=== PATIENT | male | born 1950 | race Two or more races ===

== ENCOUNTER 2019-04-21 12:45 | Inpatient (IN) | payer MEDICARE, OTHER ==
[2019-04-21] VITALS (25 sets, daily range): BP systolic 86–184; BP diastolic 48–157
[~2019-04-21] VITALS: Ht 165.1 cm; Wt 88.0 kg
[2019-04-21] MEDS ORDERED: ALBUTEROL FS 2.5 MG/3 ML VIAL.NEB ONE (12:52)
[2019-04-21] MEDS ORDERED: IPRATROPIUM NEB FS 0.5 MG/2.5 ML AMPUL.NEB ONE (12:52)
--- NOTE | 2019-04-21 12:55 | NUR ---
MARCK RA IN RESPIRATORY DISTRESS, ON CPAP FROM HOME. PATIENT ALERT AND ORIENTED, VERBALLY RESPONSIVE, ATTACHED TO THE RELIEF MAN, CHANGED INTO GOWN, RT AT BEDSIDE, KEPT PATIENT COMFORTABLE. PATIENT TACHYCARDIC. DR. ETIENNE AT BEDSIDE.
[2019-04-21] MEDS ORDERED: IV NS 0.9% 500 ML IV ONE (13:00)
[2019-04-21] MEDS ORDERED: methylPREDNISolone SOD SUCC 125 MG/2ML VIAL IV ONE (13:00)
[2019-04-21] MEDS ORDERED: ALBUTEROL FS 2.5 MG/0.5 ML VIAL.NEB NEB ONE (13:00)
[2019-04-21] MEDS ORDERED: IPRATROPIUM NEB FS 0.5 MG/2.5 ML AMPUL.NEB NEB ONE (13:00)
--- NOTE | 2019-04-21 13:00 | NUR ---
IV LINE ESTABLISHED, LABS DRAWN AND SENT TO LAB.
[2019-04-21] MEDS ORDERED: methylPREDNISolone SOD SUCC 125 MG/2ML VIAL ONE (13:08)
[2019-04-21 13:12] LABS: ABG BASE EXCESS -2.3 mmol/L; ABG OXYGEN SATURATION 98.2 % (92.0-98.5); ABG PH 7.322 (7.350-7.450); ABG PO2 146.1 mmHg (75.0-100.0); AaDO2 518.9 mmHg; MetHb 0.6 % (0.0-1.5); O2Hb 96.6 % (94.0-97.0); SITE, ABG Right Radial; VENT MODE, BG ST 15/5 R 14
[2019-04-21 13:12] LABS: BASOPHILS # (AUTO) 0.1 /CMM (0.0-0.2); BASOPHILS % (AUTO) 0.4 % (0.0-2.0); HEMATOCRIT 50 % (39-51); HEMOGLOBIN 16.5 g/dL (13.5-17.5); LYMPHOCYTES # (AUTO) 0.7 /CMM (0.8-4.8); LYMPHOCYTES % (AUTO) 5.1 % (20.0-44.0); MEAN CORPUSCULAR HGB CONC 33 g/dl (31.0-36.0); MEAN CORPUSCULAR VOLUME 91 fL (80-96); MONOCYTES # (AUTO) 1.1 /CMM (0.1-1.30); MONOCYTES % (AUTO) 7.6 % (2.0-12.0); NEUTROPHILS # (AUTO) 12.3 /CMM (1.8-8.9); NEUTROPHILS % (AUTO) 86.9 % (43.0-81.0); PLATELET COUNT (AUTO) 229 /CMM (150-450); RED BLOOD CELL COUNT(AUTO) 5.47 MIL/uL (4.5-6.0); WHITE BLOOD COUNT (AUTO) 14.2 K/uL (4.3-11.0)
[2019-04-21 13:20] LABS: CALCIUM, SERUM 8.2 mg/dL (8.5-10.1); CARBON DIOXIDE 32 mmol/L (21-32); CHLORIDE 101 mmol/L (98-107); CREATININE 1.8 mg/dL (0.6-1.3); GLUCOSE 195 mg/dL (74-106); POTASSIUM 4.8 mmol/L (3.5-5.1); SODIUM SERUM 139 mmol/L (136-145); UREA NITROGEN, BLOOD 28 mg/dL (7-18)
--- NOTE | 2019-04-21 13:27 | NUR ---
[facility] PAGED
[2019-04-21] MEDS ORDERED: CEFEPIME 1 GM in IV D5W 50 ML IV ONE (13:30)
[2019-04-21] MEDS ORDERED: VANCOMYCIN 1 GM in IV D5W 250 ML IV ONE (13:30)
[2019-04-21] MEDS ORDERED: AMLO5TAB4 PO (13:32)
[2019-04-21] MEDS ORDERED: LOSA100T31 PO (13:32)
[2019-04-21 13:33] LABS: ALANINE AMINOTRANSFERASE 80 U/L (12-78); ALKALINE PHOSPHATASE 137 U/L (46-116); ASPARTATE AMINOTRANSFERASE 72 U/L (15-37); B-TYPE NATRIURETIC PEPTIDE 3351 PG/ML (0-125); BILIRUBIN,DIRECT 0.1 mg/dL (0.0-0.2); BILIRUBIN,TOTAL 0.4 mg/dL (0.2-1.0); TOTAL PROTEIN, SERUM 7.2 g/dL (6.4-8.2)
[2019-04-21] MEDS ORDERED: IV NS 0.9% 1,000 ML BAG IV ONE (14:00)
[2019-04-21] MEDS ORDERED: CEFEPIME 1 GM in IV NS 0.9% 50 ML IV SCH (14:30)
[2019-04-21] MEDS ORDERED: ACETAMINOPHEN 325 MG TABLET PO PRN (14:30)
[2019-04-21] MEDS ORDERED: ONDANSETRON HCL/PF 4 MG/2 ML VIAL IVP PRN (14:30)
[2019-04-21] MEDS ORDERED: MAGNESIUM HYDROXIDE 30 ML UDC PO PRN (14:30)
[2019-04-21] MEDS ORDERED: Z GUARD REMEDY 2 OZ OINT TP PRN (14:30)
[2019-04-21] MEDS ORDERED: MAG HYDROX/AL HYDROX/SIMETH 30 ML UDC PO PRN (14:30)
[2019-04-21] MEDS ORDERED: ZOLPIDEM TARTRATE 5 MG TABLET PO PRN (14:30)
[2019-04-21] MEDS ORDERED: HYDROCODONE/APAP 5/325MG 1 EACH TABLET PO PRN (14:30)
--- NOTE | 2019-04-21 15:04 | NUR ---
REPORT GIVEN TO RADHA MANDEL FOR MANDO.
[2019-04-21] MEDS ORDERED: FEE PK DOSING 1 MIN EA MC ONE (15:19)
--- NOTE | 2019-04-21 15:45 | NUR ---
PATIENT TRANSFERRED TO ICU ROOM 256 VIA ACLS PROTOCOL. PATIENT IN GUARDED CONDITION. RESPONSIVE TO NAME, ABLE TO VERBALIZE 1-2 WORDS.ENDORSED TO RADHA MANDEL.
--- NOTE | 2019-04-21 16:00 | NUR ---
MEAT INSPECTOR ADMITTING NOTES: Rec'd report from MINISTERIO Hammond - admit to ICU d/t Sepsis 2' PNA, on BIPAP. Pt transferred to 256 via gurney. Pt is awake but drowsy. Placed on BIPAP by RT, pt is tachypneic, uses accessory muscle for breathing, coarse breath sounds throughout. ST on telemonitor. Febrile 100.9. Skin is intact. Has IV line on L AC G18, SL, flushing well w/ good blood return. Belongings placed at bedside. Safety precaution kept in place w/ bed in lowest & locked pos. Call light placed w/in reach. Will continue to monitor & attend pt needs Called Dr. Stoll re: clarification of IVF rate 125 cc/hr. Made him aware about pt's CXR, BNP level & current condition. Per okay w/ the current rate. RN asked for IV BP PRN med, per MD he will review pt's chart first & will call back. also made aware that pt is febrile & unsafe to give PO meds at this time, per MD may order Tylenol 650mg suppository for now.
[2019-04-21] MEDS: IV NS 0.9% 1,000 ML IV SCH ×2 (16:06→23:29)
[2019-04-21] MEDS ORDERED: ACETAMINOPHEN 650 MG/SUPP.RECT RC PRN (17:00)
[2019-04-21] MEDS ORDERED: NOREPINEPHRINE 16 MG in IV D5W 500 ML IV PRN (18:00)
--- NOTE | 2019-04-21 19:00 | NUR ---
GENETIC TECHNOLOGIST CLOSING NOTES: 174 Pt seen & examined by Dr. Stoll, updated about pt condition. 1800 Dr. Stoll made aware that pt noted to be less responsive, desating while on BIPAP w/ FiO2 100%. ABG done & reviewed by w/ orders to do intubation. Initial intubation done by Dr. Stoll, failed attempts. Ambu bagging done in between attempts done to keep saturation acceptable level. VS monitored closely. 1829 ER MD, Dr. Ku was called to intubate pt. 1844 Intubation successfully done by Dr. Ku. OGT inserted & connected to LIS. Placed bilateral soft wrist restraints for safety. STAT CXR done to confirm placement of ETT & OGT. 1899 Dr. Stoll updated about pt status. Called pt's Lorie (Ronaldo helped interpret) & updated about pt status. Pt remains sedated at this time. ETT/OGT kept in place during endorsement, awaiting CXR result to confirm placement. B soft wrist restraints placed for pt safety. Condom cath kept in place w/ minimal yellowish UOP. PM RN made aware to collect urine & sputum sample. Endorsed accordingly for MANDO.
[2019-04-21] MEDS ORDERED: SUCCINYLCHOLINE CHLORIDE 20 MG/ML VIAL IV ONE (19:01)
[2019-04-21] MEDS ORDERED: ETOMIDATE 2 MG/ML VIAL IV ONE (19:01)
[2019-04-21] MEDS ORDERED: NOREPINEPHRINE 4 MG/4 ML AMPUL IV ONE (19:13)
--- NOTE | 2019-04-21 19:13 | NUR ---
PT RECEIVED ORALLY INTUBATED WITH 8.0MM ETT @ 28CM LIPLINE, ON THE FOLLOWING SETTINGS OF AC 16R 550VT 100% O2 +5 PEEP... ORDERS RECEIVED TO WITH ETT 2CM... NEW ETT POSITION IS 8.0 MM @ 26CM, AWAITING NEW XRAY REPORT TO CONFIRM NEW PLACEMENT... PT WAS ALSO SUCTIONED FOR SPUTUM SAMPLE, APPROXIMATELY 10CC OF THIN RED TINGED SECRETION DRAWN... MINISTERIO SANTAMARIA MADE AWARE OF NEW PLACEMENT, ABG THAT WAS DRAWN AND SPUTUM SAMPLE DRAWN Addendum: 04/21/19 at 2117 by ANGIE SOLANO RT Amended: Links added.
--- NOTE | 2019-04-21 19:52 | NUR ---
BOWLING ALLEY MECHANIC. INITIAL ASSESSMENT. RECEIVED THE PT REST ON THE BED. ORALLY INTUBATED. OGT LOW INTERMITTENT SUCTION. LULÚ SOFT WRIST RESTRAINT, ORAL AND ET TUBE SUCTION IS BLOOD. BLOOD PRESSURE IS 65/45. LEVOPHED STARTED. ABDOMEN DISTENDED LACQUER MACHINE FEEDER SHOWING NSR. WILL CONTINUE TO MONITOR VITALS.
[2019-04-21] MEDS: NOREPINEPHRINE 16 MG in IV D5W 500 ML IV PRN (20:19)
--- NOTE | 2019-04-21 20:21 | NUR ---
ESTIMATOR PRINTING. RADIOLOGIST CALLED FOR S/P INTUBATION X RAY ABNORMAL RESULT , I CALLED [facility] EMERGENCY TELECOMMUNICATIONS DISPATCHER ADJUSTED ENDOTRACHEAL TUBE., AND XRAY REPEATED.
[2019-04-21] MEDS: PROPOFOL 100 ML IV PRN (20:51)
[2019-04-21 21:02] LABS: ABG BASE EXCESS -8.5 mmol/L; ABG OXYGEN SATURATION 99.3 % (92.0-98.5); ABG PCO2 85.6 mmHg (35.0-45.0); ABG PH 7.065 (7.350-7.450); ABG PO2 476.8 mmHg (75.0-100.0); AaDO2 150.6 mmHg; COHb 0.6 % (0.5-1.5); MetHb 0.8 % (0.0-1.5); O2Hb 97.9 % (94.0-97.0); PEEP,BG 5 cm H2O; SITE, ABG Right Radial; VT, ABG 550 mL
--- NOTE | 2019-04-21 21:17 | NUR ---
INTERNATIONAL RELATIONS TEACHER. S/P ABG DONE. ABG RESULT [facility] REFERRAL MANAGEMENT LIAISON MADE AWARE. FIO2 ADJUSTED.
--- NOTE | 2019-04-21 21:55 | NUR ---
PT ETT WITH DRAWN 3CM NEW PLACEMENT @23LIPLINE WITH 8.0MM ETT. PLACEMENT WAS CONFIRMED WITH XRAY... ABG RESULTS NO NEW VENT ORDERS GIVEN PER ..Rosey SANTAMARIA AWARE Addendum: 04/22/19 at 0647 by ANGIE SOLANO RT Amended: Links added.
--- NOTE | 2019-04-21 22:00 | NUR ---
RETAIL PHARMACY TECHNICIAN. SOTO CATHETER 14FG PLACED WITH OUT DIFFICULT. YELLOW PALE COLOR URINE DRAINING.
--- NOTE | 2019-04-21 22:31 | NUR ---
LOGISTICS PROJECT MANAGER. 2ND X RAY DONE, RADIOLOGIST SUGGESTED ENDOTRACHEAL TUBE PULL BACK 3CM. S/P ADJUSTMENT X RAY DONE. WAITING FOR RESULT.
--- NOTE | 2019-04-21 23:43 | NUR ---
ACTIVITIES VOLUNTEER. PT AGITATED. ARVINRIBRAULIO STARTED PER PROTOCOL.
[2019-04-22] VITALS (77 sets, daily range): BP systolic 86–156; BP diastolic 53–77
[2019-04-22 01:48] LABS: APPEARANCE,URINE CLOUDY (CLEAR); BILIRUBIN,URINE NEGATIVE (NEGATIVE); BLOOD, URINE 3+ Ery/uL (NEGATIVE); COLOR,URINE YELLOW (YELLOW); KETONES,URINE NEGATIVE (NEGATIVE); LEUKOCYTE ESTERASE ,URINE NEGATIVE (NEGATIVE); NITRITE, URINE NEGATIVE (NEGATIVE); PH,URINE 5.5 (5.0-8.0); PROTEIN,URINE 2+ mg/dl (NEGATIVE); UGLUCOSE NEGATIVE (NEGATIVE); UROBILINOGEN,URINE 0.2 EU/dL (0.2)
[2019-04-22] MEDS ORDERED: VANCOMYCIN 0.75 GM in IV D5W 250 ML IV SCH (02:00)
[2019-04-22 02:02] LABS: BACTERIA,URINE Moderate /HPF (None Seen); WBC,URINE 0-2 /HPF (0-3)
[2019-04-22 02:03] LABS: SQUAMOUS EPITHELIAL CELL,UR Rare /HPF (None Seen); URINE AMORPHOUS URATE Moderate /HPF (None Seen)
[2019-04-22 04:28] LABS: BASOPHILS # (AUTO) 0.1 /CMM (0.0-0.2); BASOPHILS % (AUTO) 0.7 % (0.0-2.0); HEMATOCRIT 44 % (39-51); HEMOGLOBIN 14.1 g/dL (13.5-17.5); LYMPHOCYTES # (AUTO) 0.5 /CMM (0.8-4.8); LYMPHOCYTES % (AUTO) 2.7 % (20.0-44.0); MEAN CORPUSCULAR HGB CONC 32 g/dl (31.0-36.0); MEAN CORPUSCULAR VOLUME 94 fL (80-96); MONOCYTES # (AUTO) 1.1 /CMM (0.1-1.30); NEUTROPHILS # (AUTO) 16.2 /CMM (1.8-8.9); NEUTROPHILS % (AUTO) 90.6 % (43.0-81.0); PLATELET COUNT (AUTO) 193 /CMM (150-450); RED BLOOD CELL COUNT(AUTO) 4.64 MIL/uL (4.5-6.0); WHITE BLOOD COUNT (AUTO) 17.9 K/uL (4.3-11.0)
[2019-04-22 04:39] LABS: CALCIUM, SERUM 7.7 mg/dL (8.5-10.1); MAGNESIUM 2.2 mg/dL (1.8-2.4); PHOSPHORUS 6.2 mg/dL (2.5-4.9)
--- NOTE | 2019-04-22 05:23 | NUR ---
OPERATIONS LEAD. LAB CALLED FOR CRITICAL VALUE FOR GLUCOSE 462, [facility] MADE AWARE. NEW ORDER RECEIVED.
--- NOTE | 2019-04-22 05:24 | NUR ---
MACHINIST TOOL AND DIE. AM CARE, ORAL CARE, BED NBATH GIVEN. LINEN CHANGED. REMAINING SAME VENT SETTINGS TOLERATED WELL. SAT 97%. NO ACUTE DISTRESS NOTED, PLACEMENT DIRECTOR SHOWING NSR, IV RT UPPER ARM PICC LINE IVF NS 125ML/H. DIPRIVAN 15MCG/KG/MIN, LEVOPHED 10MCG/MIN. OGT INTACT. LOW INTERMITTENT SUCTION. HOB ELEVATED, AFEBRILE, TURN AND REPOSITION Q2H. WILL CONTINUE TO MONITOR VITALS.
[2019-04-22] MEDS ORDERED: DEXTROSE 50%-WATER 50 ML DISP.SYRIN IV PRN (05:30)
[2019-04-22] MEDS: PROPOFOL 100 ML IV PRN ×3 (05:38→23:03)
[2019-04-22] MEDS: BLOOD SUGAR DIAGNOSTIC 1 EACH STRIP IN SCH ×3 (06:16→17:38)
[2019-04-22] MEDS: INSULIN REGULAR, HUMAN 100 UNIT/ML 3 ML VIAL SQ PRN ×3 (06:18→17:39)
--- NOTE | 2019-04-22 07:31 | NUR ---
ELECTRON BEAM PHOTO MASK MAKER NOTES RECEIVED BEDSDIE REPORT. PATIENT SEDATED TOLERATING VENT SETTINGS ORDERED. NO SS OF ACUTE PAIN NOTED. SINUS ON THE MONITOR. SOTO CATH DRAINING CLEAR YELLOW URINE NPO/ OGT TO LOW INTERMITTENT SUCTION WITH YELLOW BILE COLOR. RICARDO PICC WITH PROPOFOL @ 15 MCG AND LEVOPHED @ 10MCG.AND NS @ 125 ML/HR. SAFETY ANS ASPIRATION PRECAUTIONS IN PLACE BED IN LOW LOCKED POSITION WILL CONT TO MONITOR ACCORDINGLY
[2019-04-22 07:54] LABS: ABG BASE EXCESS -5.2 mmol/L; ABG OXYGEN SATURATION 96.4 % (92.0-98.5); ABG PCO2 59.9 mmHg (35.0-45.0); ABG PH 7.213 (7.350-7.450); ABG PO2 94.2 mmHg (75.0-100.0); AaDO2 267.7 mmHg; COHb 0.5 % (0.5-1.5); MetHb 0.8 % (0.0-1.5); O2Hb 95.1 % (94.0-97.0); SITE, ABG Left Radial; VENT MODE, BG AC 16 550 +5 60%
--- NOTE | 2019-04-22 08:02 | NUR ---
BS RECHECKED 352 MG/DL
--- NOTE | 2019-04-22 08:38 | NUR ---
SEDATION VACATION ATTEMPTED. PATIENT TOLERATED FOR APPROXIMATELY 5 MINUTES THEN BECAME RESTLESS
--- NOTE | 2019-04-22 08:40 | NUR ---
PATIENT AT BEDSIDE HELPING RELAX , ABGS TO BE DRAWN IN HOUR
[2019-04-22] MEDS ORDERED: AMLODIPINE BESYLATE 5 MG TABLET PO SCH (09:00)
[2019-04-22] MEDS ORDERED: LOSARTAN POTASSIUM 50 MG TABLET PO SCH (09:00)
[2019-04-22] MEDS: IPRATROPIUM NEB FS 0.5 MG/2.5 ML AMPUL.NEB NEB SCH ×4 (09:30→20:09)
[2019-04-22] MEDS: ALBUTEROL HALF STRENGTH 1.25 MG/3 ML VIAL.NEB NEB SCH ×4 (09:45→20:09)
[2019-04-22] MEDS: IV NS 0.9% 1,000 ML IV SCH ×2 (09:53→14:30)
[2019-04-22] MEDS: HYDROCORTISONE SOD SUCCINATE 100 MG/2 ML VIAL IV SCH ×3 (09:53→17:38)
[2019-04-22] MEDS: HEPARIN SODIUM, PORCINE 5000 UNITS/1 ML VIAL SQ SCH ×2 (09:54→20:17)
[2019-04-22] MEDS ORDERED: LEVOFLOXACIN 500 MG /D5W 100ML 100 ML IV ONE (10:00)
--- NOTE | 2019-04-22 10:00 | NUR ---
ABS DRAWN AND RESULTS GIVEN TO DR CARLOS
[2019-04-22 10:07] LABS: ABG BASE EXCESS -2.2 mmol/L; ABG OXYGEN SATURATION 94.2 % (92.0-98.5); ABG PCO2 51.1 mmHg (35.0-45.0); ABG PH 7.303 (7.350-7.450); ABG PO2 73.5 mmHg (75.0-100.0); AaDO2 225.5 mmHg; COHb 0.6 % (0.5-1.5); MetHb 0.5 % (0.0-1.5); O2Hb 93.2 % (94.0-97.0); PEEP,BG 5 cm H2O; SITE, ABG Right Radial; VT, ABG 600 mL
[2019-04-22] MEDS: LEVOFLOXACIN 750 MG /D5W 150ML 750 MG in PREMIX 1 EA IV SCH (10:56)
[2019-04-22] MEDS: FLUDROCORTISONE 0.1 MG TABLET PO SCH ×2 (13:06→17:38)
--- NOTE | 2019-04-22 14:14 | NUR ---
LEFT MESSAGE WITH [facility] FOR DR BALDERRAMA IN REGARDS TO LARGE OUTPUT IN OG/ INTERMITTENT SUCTION 800 MLS THIS SHIFT . REQUESTING ORDER FOR PROTONIX
--- NOTE | 2019-04-22 15:19 | NUR ---
ORDER FOR NS @ 125 ML/HR HUNG LATE PER NOC ELIJAH AM BAG @ [phone]
[2019-04-22] MEDS: CEFEPIME 2 GM in IV D5W 100 ML IV SCH (15:26)
[2019-04-22] MEDS: NOREPINEPHRINE 16 MG in IV D5W 500 ML IV PRN (17:48)
--- NOTE | 2019-04-22 19:00 | NUR ---
MINUTE CLERK NOTES NO SIGNIFICANT CHNAGES THROUGHOUT SHIFT PATIENT SEDATED TOLERATING VENT SETTINGS ORDERED. NO SS OF ACUTE PAIN NOTED. SINUS ON THE MONITOR. SOTO CATH DRAINING CLEAR YELLOW URINE NPO/ OGT TO LOW INTERMITTENT SUCTION WITH BLOODY DRAINAGE REPORTED TO MD STATES CAUSE D/T DIFFICULT INTUBATION RICARDO PICC WITH PROPOFOL @ 20 MCG AND LEVOPHED @ 2 MCG.AND NS @ 125 ML/HR. LAC # 18 GAUGE SL L HAND # 20 GAUGE SL SAFETY ANS ASPIRATION PRECAUTIONS IN PLACE BED IN LOW LOCKED POSITION WILL ENDORSE TO NOC
[2019-04-22] MEDS: IV NS 0.9% 1,000 ML IV PRN (19:14)
--- NOTE | 2019-04-22 19:30 | NUR ---
GAS CHECK PAD MAKER INITIAL SHIFT NOTES RECEIVED PATIENT IN BED, ASLEEP, ORALLY INTUBATED ON MECHANICAL VENTILATOR, VENT SETTINGS: AC 26, TV 600, FIO2 @ 50% PEEP 5, SEDATED LIGHTLY ON DIPRIVAN GTT, CURRENTLY @ 20MCG/KG/MIN, INFUSING VIA RIGHT UPPER ARM PICC, ALL PORTS FROM PICC AND PERIPHERAL IVs FLUSHED WITH NS, PATENT AND INTACT, NO S/S OF INFILTRATION OR PHLEBITIS. OGT TO LOW INTERMITTENT SUCTION, NOTED WITH DARK PINK SECRETIONS FROM GI TRACT, WITH SOME CLOTS NOTED. SOTO CATHETER PATENT AND INTACT, DRAINING CLEAR YELLOW URINE VIA GRAVITY. WILL CONTINUE TO CLSOELY MONITOR
[2019-04-23] VITALS (53 sets, daily range): BP systolic 105–165; BP diastolic 66–93
[2019-04-23] MEDS: BLOOD SUGAR DIAGNOSTIC 1 EACH STRIP IN SCH ×5 (00:08→21:47)
[2019-04-23] MEDS: FLUDROCORTISONE 0.1 MG TABLET PO SCH ×4 (00:16→17:20)
[2019-04-23] MEDS: INSULIN REGULAR, HUMAN 100 UNIT/ML 3 ML VIAL SQ PRN ×5 (00:18→21:49)
[2019-04-23] MEDS: ALBUTEROL HALF STRENGTH 1.25 MG/3 ML VIAL.NEB NEB SCH ×7 (00:23→22:31)
[2019-04-23] MEDS: IPRATROPIUM NEB FS 0.5 MG/2.5 ML AMPUL.NEB NEB SCH ×7 (00:23→22:31)
[2019-04-23] MEDS: VANCOMYCIN 0.75 GM in IV D5W 250 ML IV SCH (01:56)
[2019-04-23 04:14] LABS: BASOPHILS % (AUTO) 0.1 % (0.0-2.0); HEMATOCRIT 39 % (39-51); HEMOGLOBIN 12.9 g/dL (13.5-17.5); LYMPHOCYTES # (AUTO) 0.6 /CMM (0.8-4.8); LYMPHOCYTES % (AUTO) 4.4 % (20.0-44.0); MEAN CORPUSCULAR HGB CONC 33 g/dl (31.0-36.0); MEAN CORPUSCULAR VOLUME 90 fL (80-96); MONOCYTES # (AUTO) 0.8 /CMM (0.1-1.30); MONOCYTES % (AUTO) 6.5 % (2.0-12.0); NEUTROPHILS # (AUTO) 11.5 /CMM (1.8-8.9); PLATELET COUNT (AUTO) 182 /CMM (150-450); RED BLOOD CELL COUNT(AUTO) 4.31 MIL/uL (4.5-6.0)
[2019-04-23 04:31] LABS: BILIRUBIN,TOTAL 0.3 mg/dL (0.2-1.0); CALCIUM, SERUM 8.3 mg/dL (8.5-10.1); MAGNESIUM 2.4 mg/dL (1.8-2.4); POTASSIUM 3.5 mmol/L (3.5-5.1); TOTAL PROTEIN, SERUM 5.8 g/dL (6.4-8.2)
[2019-04-23] MEDS: IV NS 0.9% 1,000 ML IV PRN ×3 (04:36→21:58)
[2019-04-23] MEDS: PROPOFOL 100 ML IV PRN (07:00)
--- NOTE | 2019-04-23 07:15 | NUR ---
RN INITIAL NOTES RECEIVED PT AWAKE, A/OX1. PT INTUBATED, ON VENT. NO RESPIRATORY DISTRESS NOTED. NO SOB NOTED. NO SIGNS OF PAIN NOTED. PT ON DIPRIVAN AT 20MCG/KG/MIN. WILL TITRATE ACCORDINGLY. RICARDO PICC IN PLACE. ON LEVO AT 2MCG/MIN. WILL MONITOR BP. OG IN PLACE CONNECTED TO LOW INTERMITTENT SUCTION, BROWNISH OUTPUT NOTED. FC IN PLACE. NO HEMATURIA NOTED. PT REPOSITIONED. BLE ELEVATED. WILL MONITOR
[2019-04-23] MEDS: HEPARIN SODIUM, PORCINE 5000 UNITS/1 ML VIAL SQ SCH ×2 (08:38→21:49)
[2019-04-23] MEDS: HYDROCORTISONE SOD SUCCINATE 100 MG/2 ML VIAL IV SCH ×3 (08:38→17:20)
[2019-04-23] MEDS ORDERED: DC PROPOFOL WHEN EXTUBATED XX PRN (09:00)
--- NOTE | 2019-04-23 09:00 | NUR ---
RN NOTES 0830 SEEN AND EXAMINED BY DR BECKER. AWARE OF LAB VALUES AND LATEST IMAGING RESULT. PT OFF SEDATION. LEVOPHED OFF. BP WNL. ORDERED GI CONSULT. WILL MONITOR 0900 SEEN AND EXAMINED BY DR CARLOS. PT OFF SEDATION. A/OX1-2. PT FOLLOW SIMPLE COMMANDS. NO RESPIRATORY DISTRESS NOTED. NO SOB NOTED. ABG RESULT RELAYED AND ORDERED WEANING. WILL CLOSELY MONITOR.
[2019-04-23 09:13] LABS: ABG BASE EXCESS 0.9 mmol/L; ABG PCO2 36.4 mmHg (35.0-45.0); ABG PH 7.448 (7.350-7.450); ABG PO2 86.2 mmHg (75.0-100.0); AaDO2 157.1 mmHg; COHb 0.4 % (0.5-1.5); MetHb 0.6 % (0.0-1.5); PEEP,BG 5 cm H2O; SITE, ABG Left Radial; VT, ABG 600 mL
[2019-04-23 10:22] LABS: ABG BASE EXCESS 1.8 mmol/L; ABG OXYGEN SATURATION 96.1 % (92.0-98.5); ABG PCO2 35.6 mmHg (35.0-45.0); ABG PH 7.468 (7.350-7.450); ABG PO2 85.7 mmHg (75.0-100.0); AaDO2 158.6 mmHg; COHb 0.2 % (0.5-1.5); MetHb 0.5 % (0.0-1.5); O2Hb 95.4 % (94.0-97.0); PEEP,BG 5 cm H2O; SITE, ABG Left Brachial; VENT MODE, BG SIMV PS 15; VT, ABG 600 mL
--- NOTE | 2019-04-23 10:30 | NUR ---
RN NOTES PT ON WEANING MODE SINCE 914. ABG DONE AND RELAYED RESULT TO DR CARLOS. MD ORDERED EXTUBATION. PT EXTUBATED AT 1030. PLACED ON 02 VIA NC. WILL KEEP 02 SAT >94%. TOLERATED WELL. NO RESPIRATORY DISTRESS NOTED. DR BECKER NOTIFIED. DR BECKER ORDERED TO REMOVE OG TUBE. DC CONNECTION TO LOW INTERMITTENT SUCTION. 300ML OUTPUT NOTED. WILL CLOSELY MONITOR
--- NOTE | 2019-04-23 12:00 | NUR ---
RN NOTES BEDSIDE SWALLOW EVAL DONE. PT GIVEN ICE CHIPS AND WATER. NO COUGHING NOTED. NO SIGNS OF ASPIRATION NOTED. ABLE TO SWALLOW GOOD. DR BECKER AWARE. WILL START ON REGULAR NCS DIET.
--- NOTE | 2019-04-23 13:47 | NUR ---
RN NOTES REPORT RECEIVED FROM FELIX MANDEL FOR CONTINUITY OF CARE , PT IS A/Ox3, ON 3L OR N/C , O2 SAT 92%, NO SOB NOTED, SOTO DRINING TO GRAVITY, R UPPER ARM PICC LINE SITE CLEAN, DRY AND INTACT, SR UP X3, CALL LIGHT WITHIN EASY REACH, BED LOCKED AND IN LOWEST POSITION, CONTINUE TO MONITOR.
[2019-04-23] MEDS: CEFEPIME 2 GM in IV D5W 100 ML IV SCH (14:55)
--- NOTE | 2019-04-23 18:26 | NUR ---
RN NOTES VSS STABLE, PT TOLERATING FOOD WELL, NO PROBLEM NOTED ,PT MAGO ANY DISTRESS , O2 SAT WNL ON 3L O2 N/C , NO SOB NOTED, WILL ENDORSE TO WOMEN'S STUDIES LECTURER NURSE FOR CONTINUITY OF CARE.
--- NOTE | 2019-04-23 19:30 | NUR ---
WEATHERIZATION CREW LEADER INITIAL SHIFT NOTES RECEIVED PATIENT IN BED, AWAKE, A/O X3 ABLE TO VERBALIZE NEEDS. BREATHING EVEN AND NONLBAORESD, ON O2 VIA NC @ 3LPM, TOLERATING WELL, SPO2 WNL, NO S/S OF RESPIRATORY DISTRESS. BEDSIDE TELE MONITOR READS SINUS RHYTHM, HR 80s. PATIENT DENIES ANY PAIN OR DISCOMFORT AT THIS TIME. RICARDO PICC PATENT AND INTACT, FLUSHED WITH NS, IV FLUIDS NS @ 125 ML/HR. SOTO CATHETER PATENT AND INTACT, DRAINING CLEAR YELLOW URINE VIA GRAVITY. WILL CONTINUE TO CLOSELY MONITOR
[2019-04-23] MEDS ORDERED: DEXTROSE 50%-WATER 50 ML DISP.SYRIN IV PRN (20:00)
[2019-04-24] VITALS (24 sets, daily range): BP systolic 120–147; BP diastolic 58–86
--- NOTE | 2019-04-24 | NUR ---
STACK MATCHER NOTES PATIENT RESTING IN BED, APPEARS COMFORTABLE, TOLERATING O2 VIA NC @ 3LPM, NO EPISODES OF SUSTAINED DESATURATION. WILL CONTINUE TO CLOSELY MONITOR
[2019-04-24] MEDS: FLUDROCORTISONE 0.1 MG TABLET PO SCH ×4 (01:22→17:00)
[2019-04-24] MEDS: VANCOMYCIN 0.75 GM in IV D5W 250 ML IV SCH (01:23)
[2019-04-24] MEDS: IPRATROPIUM NEB FS 0.5 MG/2.5 ML AMPUL.NEB NEB SCH ×6 (02:45→22:59)
[2019-04-24] MEDS: ALBUTEROL HALF STRENGTH 1.25 MG/3 ML VIAL.NEB NEB SCH ×6 (02:45→22:59)
[2019-04-24 04:14] LABS: BASOPHILS % (AUTO) 0.2 % (0.0-2.0); HEMATOCRIT 40 % (39-51); HEMOGLOBIN 12.6 g/dL (13.5-17.5); LYMPHOCYTES # (AUTO) 0.5 /CMM (0.8-4.8); LYMPHOCYTES % (AUTO) 4.5 % (20.0-44.0); MEAN CORPUSCULAR HGB CONC 32 g/dl (31.0-36.0); MEAN CORPUSCULAR VOLUME 91 fL (80-96); MONOCYTES # (AUTO) 0.7 /CMM (0.1-1.30); MONOCYTES % (AUTO) 6.4 % (2.0-12.0); NEUTROPHILS % (AUTO) 88.9 % (43.0-81.0); PLATELET COUNT (AUTO) 160 /CMM (150-450); RED BLOOD CELL COUNT(AUTO) 4.32 MIL/uL (4.5-6.0); WHITE BLOOD COUNT (AUTO) 11.3 K/uL (4.3-11.0)
[2019-04-24 04:33] LABS: CALCIUM, SERUM 8.1 mg/dL (8.5-10.1); CREATININE 2.9 mg/dL (0.6-1.3); MAGNESIUM 2.8 mg/dL (1.8-2.4); PHOSPHORUS 6.4 mg/dL (2.5-4.9); POTASSIUM 3.9 mmol/L (3.5-5.1)
[2019-04-24] MEDS: IV NS 0.9% 1,000 ML IV PRN (06:42)
--- NOTE | 2019-04-24 07:00 | NUR ---
CARPET TILE LAYER NOTES PATIENT RESTING COMFORTABLY IN BED. NO ACUTE CHANGES THROUGHOUT THE SHIFT, VITALS STABLE. WILL ENDORSE THE PATIENT TO THE AM SHIFT NURSE FOR CONTINUITY OF CARE.
--- NOTE | 2019-04-24 07:05 | NUR ---
RN NOTES RECEIVED PATIENT IN BED, AWAKE, A/O X3 , ABLE TO VERBALIZE NEEDS. BREATHING EVEN AND NONLABORED, ON O2 AT 3 L N/C ,SPO2 WNL, NO SOB NOTED, ON TELE SR HR IN 80'S , R UA PICC SITE CLEAN, DRY AND INTACT, SOTO CATHETER PATENT AND INTACT, DRAINING CLEAR YELLOW URINE VIA GRAVITY. PT AT REST , DENIES ANY DISTRESS , SR UP x3, CALL LIGHT WITHIN EASY REACH, BED LOCKED AND IN LOWEST POSITION, CONTINUE TO MONITOR
[2019-04-24] MEDS: BLOOD SUGAR DIAGNOSTIC 1 EACH STRIP IN SCH ×4 (07:31→21:48)
[2019-04-24] MEDS: HYDROCORTISONE SOD SUCCINATE 100 MG/2 ML VIAL IV SCH ×3 (08:23→17:00)
[2019-04-24] MEDS: HEPARIN SODIUM, PORCINE 5000 UNITS/1 ML VIAL SQ SCH ×2 (08:24→20:34)
--- NOTE | 2019-04-24 09:00 | NUR ---
RN NOTES DR CARLOS NOTIFED REGARDING ABG RESULTS , TRANSFER ORDER TO TELE CANCELLED PER MD ORDER .
[2019-04-24] MEDS: LEVOFLOXACIN 750 MG /D5W 150ML 750 MG in PREMIX 1 EA IV SCH (09:03)
[2019-04-24 09:07] LABS: *SPE A/G RATIO 0.7 (0.7-1.7); *SPE ALBUMIN 2.2 g/dL (2.9-4.4); *SPE ALPHA-1-GLOBULIN 0.4 g/dL (0.0-0.4); *SPE BETA GLOBULIN 0.8 g/dL (0.7-1.3); *SPE GLOBULIN, TOTAL 3.2 g/dL (2.2-3.9); *SPE M-SPIKE Not Observed g/dL (Not Observed); *SPEGAMMA GLOBULIN 0.9 g/dL (0.4-1.8)
[2019-04-24 09:09] LABS: ABG BASE EXCESS -0.6 mmol/L; ABG PCO2 62.4 mmHg (35.0-45.0); ABG PH 7.265 (7.350-7.450); ABG PO2 62.3 mmHg (75.0-100.0); AaDO2 100.1 mmHg; COHb 0.5 % (0.5-1.5); MetHb 0.6 % (0.0-1.5); SITE, ABG Right Radial; VENT MODE, BG nasal cannula
--- NOTE | 2019-04-24 11:00 | NUR ---
RN NOTES PT OUT OF BED TO BSC , TOLERATED WELL , NO BM YET .
[2019-04-24] MEDS: INSULIN REGULAR, HUMAN 100 UNIT/ML 3 ML VIAL SQ PRN ×3 (11:32→21:48)
[2019-04-24 13:07] LABS: PTH, INTACT 176 pg/mL (15-65)
[2019-04-24 13:34] LABS: ABG BASE EXCESS -1.6 mmol/L; ABG OXYGEN SATURATION 90.3 % (92.0-98.5); ABG PH 7.355 (7.350-7.450); ABG PO2 59.1 mmHg (75.0-100.0); AaDO2 59.7 mmHg; COHb 0.9 % (0.5-1.5); MetHb 0.4 % (0.0-1.5); O2Hb 89.1 % (94.0-97.0); SITE, ABG Right Radial; VENT MODE, BG nasal cannula
--- NOTE | 2019-04-24 13:41 | NUR ---
RN NOTES DR CARLOS NOTIFED REGARDING ABG RESULT , NO NEW ORDER GIVEN . CONTINUE TO MONITOR
[2019-04-24] MEDS: CEFEPIME 2 GM in IV D5W 100 ML IV SCH (15:01)
--- NOTE | 2019-04-24 18:01 | NUR ---
RN NOTES VSS STABLE, PT MAGO ANY DISTRESS , OUT OF BED TO BSC x2 TODAY , NO SIGNIFICANT CHANGES NOTED ON THIS SHIFT , WILL ENDOSE TO LEAD SHIPPER NURSE FOR CONTINUITY OF CARE
--- NOTE | 2019-04-24 18:11 | NUR ---
RN NOTES PT C/O CONSTIPATION MOM GIVEN PO .
--- NOTE | 2019-04-24 19:30 | NUR ---
LOADING CHECKER NOTES RECEIVED PT AWAKE, ALERT,ORIENTED X4.ON ROOM AIR,DENIES SHORTNESS OF BREATH OR DISCOMFORT.SATURATING 92 % .W/ PRODUCTIVE COUGH BUT UNABLE TO COUGH IT OUT.MONITOR SHOWS NSR.
--- NOTE | 2019-04-24 20:00 | NUR ---
TELE NOTES RECEIVED PT AWAKE ALERT AND ORIENTED X3.ON ROOM AIR W/ SAT. OF 97 %.IN NEGATIVE PRESSURE ROOM FOR SCABIES.PT IS A TELEMETRY PT.MILD PAIN 2/10 ON LEFT ARM W/ BLISTERS AND REDNESS.MONITOR SHOWS NSR.OFFERS NO COMPLAINTS. Addendum: 04/24/19 at 2123 by DEVEN JOHSNON RN WRONG PT.
--- NOTE | 2019-04-24 21:22 | NUR ---
ICU status, s/p extubation. He is alert and oriented. He lives locally with his spouse. Prior to admission, he was ambulatory and independent with adl's. Family is involved and supportive. Current dc plan is to return home with . Addendum: 04/24/19 at 2123 by RENETTA HAYS RN Amended: Links added.
--- NOTE | 2019-04-24 22:00 | NUR ---
ICU NOTES PT. SOUND ASLEEP.RESPIRATIONS REGULAR AND EVEN.AWAKENED SPO2 DOWN TO 86-85%.,WENT UP TO 88% AFTER.
--- NOTE | 2019-04-24 23:00 | NUR ---
ICU NOTES PLACED ON BIPAP BY RT.IE 23/06 RATE OF 12 28%FIO2,SAT=93 %-96%.
--- NOTE | 2019-04-24 23:00 | NUR ---
PT PLACED ON BIPAP 20/10, RATE 12, FIO2 28%. BIPAP PLUGGED INTO RED OUTLET, ALARMS ARE ON AND AUDIBLE. NO RESPIRATORY DISTRESS NOTED AT THIS TIME. BREATHING TX GIVEN ORDERED. NO ADVERSE REACTION NOTED. WILL CONTINUE TO MONITOR THE PT.
[2019-04-25] VITALS (24 sets, daily range): BP systolic 103–161; BP diastolic 67–96
[2019-04-25] MEDS: VANCOMYCIN 0.75 GM in IV D5W 250 ML IV SCH (02:17)
[2019-04-25] MEDS: FLUDROCORTISONE 0.1 MG TABLET PO SCH ×5 (02:22→23:35)
[2019-04-25] MEDS: IPRATROPIUM NEB FS 0.5 MG/2.5 ML AMPUL.NEB NEB SCH ×6 (03:20→23:13)
[2019-04-25] MEDS: ALBUTEROL HALF STRENGTH 1.25 MG/3 ML VIAL.NEB NEB SCH ×6 (03:20→23:13)
--- NOTE | 2019-04-25 04:00 | NUR ---
ICU NOTES MAINTAINING SAT.OF 92-95%.SLEPT WELL.VITAL SIGNS STABLE.COMPLETE BED BATH DONE.
[2019-04-25 04:26] LABS: BASOPHILS % (AUTO) 0.1 % (0.0-2.0); HEMATOCRIT 37 % (39-51); HEMOGLOBIN 12.2 g/dL (13.5-17.5); LYMPHOCYTES # (AUTO) 0.5 /CMM (0.8-4.8); MEAN CORPUSCULAR HGB CONC 33 g/dl (31.0-36.0); MEAN CORPUSCULAR VOLUME 92 fL (80-96); MONOCYTES # (AUTO) 0.6 /CMM (0.1-1.30); MONOCYTES % (AUTO) 7.5 % (2.0-12.0); NEUTROPHILS # (AUTO) 7.4 /CMM (1.8-8.9); NEUTROPHILS % (AUTO) 86.4 % (43.0-81.0); PLATELET COUNT (AUTO) 130 /CMM (150-450); RED BLOOD CELL COUNT(AUTO) 4.01 MIL/uL (4.5-6.0); WHITE BLOOD COUNT (AUTO) 8.5 K/uL (4.3-11.0)
[2019-04-25 04:36] LABS: CALCIUM, SERUM 7.8 mg/dL (8.5-10.1); CREATININE 2.3 mg/dL (0.6-1.3); MAGNESIUM 2.8 mg/dL (1.8-2.4); PHOSPHORUS 3.4 mg/dL (2.5-4.9); POTASSIUM 3.8 mmol/L (3.5-5.1)
--- NOTE | 2019-04-25 07:15 | NUR ---
ICU NOTES RECEIVED BEDSIDE REPORT FROM NOC. PATIENT SLEEPING ABLE TO AROUSE WITH VOICE AND TOUCH A/O X4 .ON BIPAP SETTINGS 50:10 FIO2 10 SATURATING WELL.NO C/O PAIN AT THIS TIME. RICARDO PICC PATENT IV SALINE LOCK LAC # 18 AND LEFT HAND # 20 SL. SKIN INATCT VITAL SSTABLE AT THIS TIME . SAFETY PRECAUTIONS IN PLACE BED IN LOW PRAKASH POSITION . CALL LIGHT WITHIN REACH WILL CONT TO MONITOR ACCORDINGLY
--- NOTE | 2019-04-25 07:21 | NUR ---
ICU NOTES DETAILED REPORT AND CARE OF PT. GIVEN TO LEONARDO MANDEL.AND LUZ MARINA MANDEL.
[2019-04-25] MEDS: BLOOD SUGAR DIAGNOSTIC 1 EACH STRIP IN SCH ×4 (07:44→21:38)
[2019-04-25] MEDS: HYDROCORTISONE SOD SUCCINATE 100 MG/2 ML VIAL IV SCH ×3 (08:35→17:03)
[2019-04-25] MEDS: PANTOPRAZOLE 40 MG TABLET.DR PO SCH (08:35)
[2019-04-25] MEDS: INSULIN REGULAR, HUMAN 100 UNIT/ML 3 ML VIAL SQ PRN ×4 (08:39→21:36)
[2019-04-25] MEDS: HEPARIN SODIUM, PORCINE 5000 UNITS/1 ML VIAL SQ SCH ×2 (08:40→20:54)
[2019-04-25 08:55] LABS: ABG BASE EXCESS 0.1 mmol/L; ABG PH 7.361 (7.350-7.450); ABG PO2 48.5 mmHg (75.0-100.0); AaDO2 66.7 mmHg; COHb 0.7 % (0.5-1.5); MetHb 0.5 % (0.0-1.5); SITE, ABG Right Radial; VENT MODE, BG nasal cannula
--- NOTE | 2019-04-25 11:53 | NUR ---
ICU NOTES BED BATH GIVEN ORAL CARE OFFERED TO PT AND DONE BY PATIENT. ENCOURAGE SELF CARE
[2019-04-25] MEDS: AMLODIPINE BESYLATE 5 MG TABLET PO SCH (13:32)
[2019-04-25] MEDS: CEFEPIME 2 GM in IV D5W 100 ML IV SCH (15:08)
--- NOTE | 2019-04-25 18:42 | NUR ---
ICU NOTES NO SIGNIFICANT CHANGES THROUGHOUT THE DAY. NO SIGNS OR SYMPTOMS OF RESPIRATORY DISTRESS SATURATING 88-90% ON 1 LTR NASAL CANNULA. NO ACUTE PAIN. SINUS ON MONITOR USING SPIROMETER QHR. ASSISTED TO BEDSIDE COMMODE . SOTO CATH DRAINING CLEAR YELLOW URINE. SKIN IN TACT. RICARDO PICC LINE PATENT WITH BLOOD RETURN SALINE LOCK. NO EPISODES OF HYPER/HYPOGLYCEMIA. KEPT CLEAN AND DRY SAFETY PRECAUTIONS IN PLACE BED IN LOW LOCKED POSITION CALL LIGHT WITHIN REACH
--- NOTE | 2019-04-25 19:30 | NUR ---
PLATE TAKE OUT WORKER NOTES RECEIVED PT AWAKE ALERT OX3.FOLLOWS COMMANDS.ON 1LN/C ,SAT 90%.MONITOR SHOWS NSR..
--- NOTE | 2019-04-25 19:40 | NUR ---
SEEING EYE DOG TEACHER NOTES PATIENT C/O POSTERIOR NECK PAIN 03/13,THROBBING PAIN.CALL PLACED TO MARISOL MCELROY VIA ANSWERING SERVICE.WILL AWAIT FOR CALL BACK.
--- NOTE | 2019-04-25 20:00 | NUR ---
UTILITY WORKER FORGE NOTES MARISOL DNP RETURNED CALL,ORDERS RECEIVED
--- NOTE | 2019-04-25 20:19 | NUR ---
INFORMATICIST NOTES NORCO5/325 1 TABLET GIVEN FOR PAIN,WILL REASSESS.FAMILY AT BEDSIDE VISITING.
[2019-04-25] MEDS ORDERED: HYDROCODONE/APAP 5/325MG 1 EACH TABLET PO PRN ×2 (20:30)
[2019-04-25] MEDS ORDERED: ACETAMINOPHEN 325 MG TABLET PO PRN (20:30)
[2019-04-25] MEDS ORDERED: CELECOXIB 100 MG CAPSULE PO SCH (21:00)
--- NOTE | 2019-04-25 22:00 | NUR ---
INSEAM TRIMMING MACHINE OPERATOR NOTES MILD NECK PAIN 10/14.STABLE VITAL SIGNS
--- NOTE | 2019-04-25 23:13 | NUR ---
ATTEMPTED TO PLACE THE PT ON BIPAP. PT REFUSED NOC BIPAP AT THIS TIME. REMAINS ON NASAL CANNULA 1 L/M. NO RESPIRATORY DISTRESS NOTED AT THIS TIME. MINISTERIO CARVALHO NOTIFIED. WILL CONTINUE TO MONITOR THE PT.
--- NOTE | 2019-04-25 23:41 | NUR ---
SET UP INSPECTOR NOTES DETAILED REPORT AND CARE OF PT ENDORSED TO SALINA MANDEL.TRANSFERRED PT VIA BED W/ PT'S MEDS AND BELONGING.
[2019-04-26] VITALS: BP 156/83
--- NOTE | 2019-04-26 | NUR ---
RN NOTES RECEIVED PATIENT TELEPHONE REPORT FROM MESSENGER COPY DEVEN. RECEIVED PATIENT WITH THE BED FROM ICU. PATIENT IS SWISS SPEAKING ONLY. PATIENT IS A/A/AOX4, ON 1L O2 VIA NC WITH SPO2 OF 94%, NO SOB , NO PAIN AT THIS TIME. SKIN ASSESSMENT IS DONE. PATIENT IS PLACED ON FOUNTAIN ATTENDANT WITH HR OF 84 ON FOUNTAIN ATTENDANT. NO FIVER AT THIS TIME. SOTO CATHETER IS IN PLACE DRAINING ON GRAVITY. RIGHT UPPER ARM PICC LINE IS NOTED PATIENT AND INTACT. ALL SAFETY MEASURES ARE IN PLACE, BED ALARM IS ON, CALL LIGHT WITHIN REACH. WILL CONTINUE TO MONITOR PATIENT CLOSELY.
[2019-04-26] MEDS: VANCOMYCIN 1 GM in IV D5W 250 ML IV SCH (02:22)
[2019-04-26] MEDS: ALBUTEROL HALF STRENGTH 1.25 MG/3 ML VIAL.NEB NEB SCH ×6 (03:33→23:36)
[2019-04-26] MEDS: IPRATROPIUM NEB FS 0.5 MG/2.5 ML AMPUL.NEB NEB SCH ×6 (03:33→23:35)
[2019-04-26 04:00] VITALS: BP 144/71
[2019-04-26] MEDS: FLUDROCORTISONE 0.1 MG TABLET PO SCH ×3 (06:18→17:46)
[2019-04-26 08:00] VITALS: BP_SYST 114; BP_SYST 141; BP_DIAS 70; BP_DIAS 78
[2019-04-26] MEDS: BLOOD SUGAR DIAGNOSTIC 1 EACH STRIP IN SCH ×4 (08:35→21:31)
[2019-04-26] MEDS ORDERED: METOPROLOL SUCCINATE 25 MG TAB.SR.24H PO SCH (09:00)
[2019-04-26] MEDS: FUROSEMIDE 40 MG/4 ML VIAL IV SCH ×3 (09:20→17:54)
[2019-04-26] MEDS: HYDROCORTISONE SOD SUCCINATE 100 MG/2 ML VIAL IV SCH ×3 (09:24→17:53)
[2019-04-26] MEDS: HEPARIN SODIUM, PORCINE 5000 UNITS/1 ML VIAL SQ SCH ×2 (09:27→21:29)
[2019-04-26] MEDS: PANTOPRAZOLE 40 MG TABLET.DR PO SCH (09:29)
[2019-04-26] MEDS: AMLODIPINE BESYLATE 5 MG TABLET PO SCH (09:30)
[2019-04-26] MEDS: LEVOFLOXACIN 750 MG /D5W 150ML 750 MG in PREMIX 1 EA IV SCH (09:31)
[2019-04-26 11:26] LABS: BASOPHILS % (AUTO) 0.3 % (0.0-2.0); EOSINOPHILS % (AUTO) 0.2 % (0.0-6.0); HEMATOCRIT 40 % (39-51); HEMOGLOBIN 13.2 g/dL (13.5-17.5); LYMPHOCYTES # (AUTO) 0.5 /CMM (0.8-4.8); LYMPHOCYTES % (AUTO) 6.5 % (20.0-44.0); MEAN CORPUSCULAR HGB CONC 33 g/dl (31.0-36.0); MEAN CORPUSCULAR VOLUME 90 fL (80-96); MONOCYTES # (AUTO) 0.8 /CMM (0.1-1.30); MONOCYTES % (AUTO) 9.9 % (2.0-12.0); NEUTROPHILS % (AUTO) 83.1 % (43.0-81.0); PLATELET COUNT (AUTO) 159 /CMM (150-450); RED BLOOD CELL COUNT(AUTO) 4.48 MIL/uL (4.5-6.0); WHITE BLOOD COUNT (AUTO) 8.4 K/uL (4.3-11.0)
[2019-04-26 11:38] LABS: CALCIUM, SERUM 7.7 mg/dL (8.5-10.1); CREATININE 2.2 mg/dL (0.6-1.3); MAGNESIUM 2.5 mg/dL (1.8-2.4); PHOSPHORUS 3.6 mg/dL (2.5-4.9); POTASSIUM 3.6 mmol/L (3.5-5.1)
[2019-04-26 11:48] LABS: BAND % (MANUAL) 1 % (0.0-5.0); EOSINOPHILS % (MANUAL) 1 % (0-4); LYMPHOCYTES % (MANUAL) 5 % (16-48); MONOCYTES % (MANUAL) 12 % (0-11.0); MYELOCYTES % 3 % (0-0); NEUTROPHILS % (MANUAL) 78 (42-76)
[2019-04-26] MEDS: INSULIN REGULAR, HUMAN 100 UNIT/ML 3 ML VIAL SQ PRN ×3 (12:31→21:35)
[2019-04-26] MEDS: CEFEPIME 2 GM in IV D5W 100 ML IV SCH (15:25)
[2019-04-26 16:00] VITALS: BP 136/77
[2019-04-26 20:00] VITALS: BP 137/73
[2019-04-27] MEDS: FLUDROCORTISONE 0.1 MG TABLET PO SCH ×2 (00:52→06:03)
[2019-04-27] MEDS: VANCOMYCIN 1 GM in IV D5W 250 ML IV SCH (02:21)
[2019-04-27] MEDS: IPRATROPIUM NEB FS 0.5 MG/2.5 ML AMPUL.NEB NEB SCH ×3 (03:17→10:52)
[2019-04-27] MEDS: ALBUTEROL HALF STRENGTH 1.25 MG/3 ML VIAL.NEB NEB SCH ×3 (03:17→10:52)
[2019-04-27 04:00] VITALS: BP 145/68
--- NOTE | 2019-04-27 07:30 | NUR ---
INITIAL RECEIVED PATIENT ON BED S/P DAY 1 FROM ICU. PATIENT IS CROATIAN SPEAKING ONLY. PATIENT IS A/A/AOX4, ON 1L O2 VIA NC WITH SPO2 OF 94%, NO SOB , NO PAIN AT THIS TIME. SKIN ASSESSMENT IS DONE. PATIENT IS MED/SURG STATUS. NO FIVER AT THIS TIME. SOTO CATHETER IS IN PLACE DRAINING ON GRAVITY. RIGHT UPPER ARM PICC LINE IS NOTED PATIENT AND INTACT. ALL SAFETY MEASURES ARE IN PLACE, BED ALARM IS ON, CALL LIGHT WITHIN REACH. WILL CONTINUE TO MONITOR PATIENT CLOSELY.
[2019-04-27] MEDS: BLOOD SUGAR DIAGNOSTIC 1 EACH STRIP IN SCH ×2 (07:45→12:15)
[2019-04-27] MEDS: INSULIN REGULAR, HUMAN 100 UNIT/ML 3 ML VIAL SQ PRN ×2 (07:45→12:18)
[2019-04-27] MEDS: PANTOPRAZOLE 40 MG TABLET.DR PO SCH (07:51)
[2019-04-27 08:00] VITALS: BP 155/70
[2019-04-27 08:07] LABS: BASOPHILS % (AUTO) 0.1 % (0.0-2.0); EOSINOPHILS % (AUTO) 0.5 % (0.0-6.0); HEMATOCRIT 42 % (39-51); HEMOGLOBIN 13.7 g/dL (13.5-17.5); LYMPHOCYTES # (AUTO) 0.7 /CMM (0.8-4.8); LYMPHOCYTES % (AUTO) 7.4 % (20.0-44.0); MEAN CORPUSCULAR HGB CONC 33 g/dl (31.0-36.0); MEAN CORPUSCULAR VOLUME 90 fL (80-96); MONOCYTES # (AUTO) 1.3 /CMM (0.1-1.30); MONOCYTES % (AUTO) 13.5 % (2.0-12.0); NEUTROPHILS # (AUTO) 7.7 /CMM (1.8-8.9); NEUTROPHILS % (AUTO) 78.5 % (43.0-81.0); PLATELET COUNT (AUTO) 162 /CMM (150-450); RED BLOOD CELL COUNT(AUTO) 4.65 MIL/uL (4.5-6.0); WHITE BLOOD COUNT (AUTO) 9.8 K/uL (4.3-11.0)
[2019-04-27 08:20] LABS: ALBUMIN 2.4 g/dL (3.4-5.0); BILIRUBIN,TOTAL 0.3 mg/dL (0.2-1.0); CALCIUM, SERUM 8.2 mg/dL (8.5-10.1); CREATININE 2.1 mg/dL (0.6-1.3); MAGNESIUM 2.3 mg/dL (1.8-2.4); PHOSPHORUS 4.7 mg/dL (2.5-4.9); POTASSIUM 3.1 mmol/L (3.5-5.1); TOTAL PROTEIN, SERUM 6.3 g/dL (6.4-8.2)
[2019-04-27] MEDS: HYDROCORTISONE SOD SUCCINATE 100 MG/2 ML VIAL IV SCH ×2 (09:27→12:53)
[2019-04-27] MEDS: HEPARIN SODIUM, PORCINE 5000 UNITS/1 ML VIAL SQ SCH (09:30)
[2019-04-27 09:31] VITALS: BP 155/70
[2019-04-27] MEDS: AMLODIPINE BESYLATE 5 MG TABLET PO SCH (09:31)
--- NOTE | 2019-04-27 10:52 | NUR ---
MS NOTES ROOM AIR SATURATION 93-95% SOTO TAKEN OUT PER MD PEREZ
--- NOTE | 2019-04-27 11:52 | NUR ---
MS NOTES POST SOTO VOID 100 ML
[2019-04-27] MEDS ORDERED: POTASSIUM CHLORIDE 10 MEQ TABLET.SA PO ONE (12:00)
--- NOTE | 2019-04-27 14:09 | NUR ---
DISCHARGE PT DISCHARGED PER MD BRADY GIVEN ACI AND TOLD TO FOLLOW UP WITH PULMONARY MD FOR SLEEP STUDY PT WHEELED BY CHAIR TO LOBBY WITH FAMILY FAMILY TAKING [facility] HOME. PICC FROM RIGHT ARM REMOVED WITH TIP IN TACT AND PRESURE DRESSED.
== END 2019-04-27 14:11 | disposition home or self-care (01) | DRG 871 ==
LOC: EDBD 12:51 → ER 12:51 → ICU 14:42 → TELE-TD 04-25 23:42 → MEDSG1 04-26 08:30
PROVIDERS: ADMIT Family Medicine; ATTEND Internal Medicine
PROC: 5A1945Z Respiratory Ventilation, 24-96 Consecutive Hours (ICD-10-PCS; principal; 2019-04-21)
PROC: 0BH18EZ Insertion of Endotracheal Airway into Trachea, Via Natural or Artificial Opening Endoscopic (ICD-10-PCS; 2019-04-21)
PROC: 02HV33Z Insertion of Infusion Device into Superior Vena Cava, Percutaneous Approach (ICD-10-PCS; 2019-04-22)
PROC: B548ZZA Ultrasonography of Superior Vena Cava, Guidance (ICD-10-PCS; 2019-04-22)
DX: A41.9 Sepsis, unspecified organism (principal); N17.0 Acute kidney failure with tubular necrosis; I21.A1 Myocardial infarction type 2; J15.9 Unspecified bacterial pneumonia; J96.01 Acute respiratory failure with hypoxia; J96.02 Acute respiratory failure with hypercapnia; E87.2 Acidosis; J44.0 Chronic obstructive pulmonary disease with (acute) lower respiratory infection; J44.1 Chronic obstructive pulmonary disease with (acute) exacerbation; E27.40 Unspecified adrenocortical insufficiency; K92.2 Gastrointestinal hemorrhage, unspecified; E11.22 Type 2 diabetes mellitus with diabetic chronic kidney disease; E11.65 Type 2 diabetes mellitus with hyperglycemia; I12.9 Hypertensive chronic kidney disease with stage 1 through stage 4 chronic kidney disease, or unspecified chronic kidney disease; G47.30 Sleep apnea, unspecified; N18.9 Chronic kidney disease, unspecified; R65.20 Severe sepsis without septic shock; I95.9 Hypotension, unspecified; Z85.46 Personal history of malignant neoplasm of prostate; D69.59 Other secondary thrombocytopenia; Z90.79 Acquired absence of other genital organ(s)
CPT/HCPCS: 31720; 36415; 36569; 36600; 71045-TC; 76770-TC; 80048-TC; 80053-TC; 80061-TC; 80076-TC; 80202-TC; 81000-TC; 82533; 82550-TC; 82803-TC; 82962-TC; 83605-TC; 83735-TC; 83880; 83970; 84100-TC; 84155; 84165; 84484-TC; 85025-TC; 87040-TC; 87070-TC; 87081-TC; 87086-TC; 92526; 92611-TC; 93307-TC; 94002-TC; 94003-TC; 94640-TC; 94799-TC; 97116-TC; 97530-TC; A4216; A4349; C1751; G0378; J0330; J0692; J1644; J1720; J1815; J1940; J1956; J2930; J3370; J3490; J7030; J7040; J7050; J7060